=== PATIENT | male | born 2000 | race African-American/Black ===

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

== ENCOUNTER 2023-04-23 18:27 | Emergency (ER) | payer SELFPAY ==
[~2023-04-23] VITALS: Ht 195.6 cm; Wt 151.4 kg
[~2023-04-23 18:27] MED LIST: VYVANSE20 MG PO
[2023-04-23 18:40] VITALS: TEMP 98.1
[2023-04-23 19:14] LABS: BASO # 0.1 K/mm3 (0.0-0.2); BASO % 0.9 % (0.0-2.0); EOS # 0.2 K/mm3 (0.0-0.7); EOS % 2.4 % (0.0-4.0); GRAN # 3.8 K/mm3 (1.4-6.5); GRAN % 55.2 % (42.2-75.2); HEMATOCRIT 43.5 % (42.0-52.0); HEMOGLOBIN 14.2 g/dl (13.5-18.0); LYMPH # 2.4 K/mm3 (1.2-3.4); LYMPH % 34.8 % (20.0-51.0); MEAN CELL VOLUME 92 fl (80.0-100.0); MEAN CORPUSCULAR HEMOGLOBIN 30 pg (27-31); MEAN CORPUSCULAR HGB CONC 33 g/dl (33.0-37.0); MONO # 0.5 K/mm3 (0.1-0.6); MONO % 6.6 % (1.7-9.3); PLATELET COUNT 280 K/mm3 (130-400); RED BLOOD COUNT 4.72 M/mm3 (4.20-5.60); REDCELL DISTRIBUTION WIDTH-CV 12.1 % (11.5-14.5)
[2023-04-23 19:29] LABS: ALBUMIN 4.5 gm/dL (3.5-5.0); BILIRUBIN,TOTAL 0.7 mg/dL (0.2-1.2); CALCIUM 9.8 mg/dL (8.4-10.2); CREATININE, serum 0.94 mg/dL (0.72-1.25); POTASSIUM 3.8 mmol/L (3.5-4.5); TOTAL PROTEIN 8.1 gm/dL (6.2-8.1)
[2023-04-23 19:34] LABS: TROPONIN-I 0.014 ng/mL (0.00-0.033)
[2023-04-23 21:46] VITALS: O2SAT 100
[2023-04-23 22:20] VITALS: BP 116/80; PULSE 60
== END 2023-04-23 22:20 | disposition home or self-care (01) ==
LOC: COL.ER 18:27
PROVIDERS: Nurse Practitioner
DX: R07.89 Other chest pain (principal); Z28.310 Unvaccinated for COVID-19